=== PATIENT | male | born 1980 | race Caucasian/White ===

== ENCOUNTER 2017-09-16 01:28 | Emergency (ER) | payer OTHER, SELFPAY ==
[2017-09-16 01:29] VITALS: BP 146/100; PULSE 99; RESP 20; TEMP 36.6; O2SAT 99; BMI 27.8
[2017-09-16] MEDS: Lidocaine/Epi/Tetracaine 50 ML 1 APPLIC TOPICAL (04:49)
--- NOTE | 2017-09-16 05:32 | NURSING ---
PATIENT IS STILL WAITING TO GET SUTURED UP. DR. CALLEJAS HAS TOLD THE PATIENT THAT THIS WILL BE A LONGER PROCEDURE AND HE WOULD HAVE TO WAIT. PATIENT IS GETTING IMPATIENT AND REQUESTED TO BE TAKEN BY AN AMBULANCE TO ANOTHER HOSPITAL. HE WAS TOLD THAT HE WOULD HAVE TO GET HIS OWN TRANSPORTATION TO ANOTHER HOSPITAL. PATIENT HAS GONE OUT TO SMOKE TWO TIMES. HE HAS BEEN OFFERED EMOTIONAL SUPPORT AND FOOD/DRINK AND HE REFUSED ANGRILY. DR. CALLEJAS MADE AWARE OF HIS DISPLEASURE OF HAVING TO WAIT.
--- NOTE | 2017-09-16 06:40 | NURSING ---
DR. CALLEJAS IS CURRENTLY IN THE ROOM SUTURING THE PATIENT'S LIPS/MOUTH.
[2017-09-16 06:43] VITALS: BP 157/111; PULSE 91; O2SAT 100
--- NOTE | 2017-09-16 07:00 | ED.VISSUMM ---
- ER Visit Summary Date of Service: 09/16/17 Chief Complaint: Dog bite to face History of Present Illness: The patient is a 36 M plan with family dog when the dog accidentally bit him in the face. Causing multiple severe lacerations to both his upper and lower lip. There is also superficial wound to the right lateral side of his nose. This occurred approximately 1 hour prior to arrival around 1 AM. He denies other injuries. He denies any dental pain or any teeth being loose. Is unsure of his tetanus status. Physical Examination: Young male with multiple upper and lower lip lacerations from a dog bite. Vital signs are stable afebrile. He is anxious but cooperative. HEENT exam pupils round reactive light. Patient has 3 lacerations to his upper lip and 2 lacerations to his lower lip. These are through and through. There is significant swelling about the upper and lower lip and bruising. There does not appear to be any dental injury there is no malocclusion. There is no dental tenderness. He also has a superficial laceration to the right lateral nose alongside the naris but this does not need to be repaired. Neck nontender. Lungs are clear to auscultation. Heart is regular rhythm no murmur. Abdomen is soft and nontender. He is moving all 4 extremities. They are neurovascularly intact. Neurologically is awake and alert without focal motor deficits. Test Results: None Emergency Department Course and Treatment: Tetanus will be updated. Right upper lip the initial laceration is 3 cm and gaping. Involves the outer and inner surface. And also the vermilion border. Laceration #2 was 2 and asked centimeters it is just lateral to the first laceration and again is through and through. Laceration #3 is lateral to laceration #2. And is only about a centimeter will still need repair. Laceration #4 is on the right lateral side of the lower lip. Is approximately 2 and a centimeters in length. Again is through and through. #5 laceration is in the midportion of the left little lower lip. It is also to have centimeters and is through and through. All lacerations were anesthetized either locally or through a local block. All were explored and cleaned using Shur-Clens. All were copiously irrigated. All were closed using simple interrupted 5-0 Vicryl suture. Patient tolerated procedure well. The #1 laceration had 5 sutures. #2 laceration at 4 sutures. #3 laceration at 1 suture. #4 and 5 lacerations had 4 sutures. Proper hemostasis wound closure was obtained. Patient was pleased with the results. He was instructed on wound care. Ice and Motrin for pain. Treatment Plan: Ice to the facial wounds. Keep area clean. Call and follow-up with Dr. molly Paul for follow-up evaluation and laceration revision as necessary for the best cosmetic appearance. Disposition: Discharge Impression: Dog bite to the face with multiple lip lacerations Lip laceration #1 3 cm Lip laceration #2 2 and half centimeters Lip laceration #3 1 cm Laceration #4 2.5 cm Laceration #5 2.5 cm This note was generated with [employer] dictation software. It may contain incorrect words, spelling, and punctuation that were not noted in review of the chart prior to signing ED Disposition - Plan for ED Patient: Chief Complaint: Bite Referrals: Naima Solorio [Primary Care Provider] -
--- NOTE | 2017-09-16 07:10 | ED.DEP ---
ED Disposition - Plan for ED Patient: Disposition: Home or Assisted Living Chief Complaint: Bite Instructions: ED Bite Dog Prescriptions: Amoxicillin/Potassium Clav [Augmentin 875-125 Tablet] 1 ea PO BID #10 tab Referrals: Rod Mason MD [STAFF PHYSICIAN] - As soon as possible Additional Instructions: Ice your lips to decrease the swelling as much as possible. Motrin for pain and swelling. Keep all the lacerations and wounds as clean as possible by rinsing her mouth out thoroughly multiple times a day. Next Augmentin is an antibiotic he will take twice a day for the first 5 days to try to help prevent any type of infection. Her tetanus is been updated and are good for 10 years now. Call follow-up with Dr. Rod Mason the [facility] plastic surgeon for repeat evaluation and possible wound revision as needed.
[2017-09-16] MEDS: HYDROcodone Bitartrate/Apap 5/325 Tablet PO (07:13)
--- NOTE | 2017-09-16 07:17 | DCINST.ED_ITS ---
ED Disposition - Plan for ED Patient: Disposition: Home or Assisted Living Chief Complaint: Bite Instructions: ED Bite Dog Prescriptions: Amoxicillin/Potassium Clav [Augmentin 875-125 Tablet] 1 ea PO BID #10 tab Referrals: Rod Mason MD [STAFF PHYSICIAN] - As soon as possible Additional Instructions: Ice your lips to decrease the swelling as much as possible. Motrin for pain and swelling. Keep all the lacerations and wounds as clean as possible by rinsing her mouth out thoroughly multiple times a day. Next Augmentin is an antibiotic he will take twice a day for the first 5 days to try to help prevent any type of infection. Her tetanus is been updated and are good for 10 years now. Call follow-up with Dr. Rod Mason the [facility] plastic surgeon for repeat evaluation and possible wound revision as needed.
[2017-09-16 07:22] VITALS: RESP 18
== END 2017-09-16 07:24 | disposition home or self-care (01) ==
PROVIDERS: Emergency Provider Emergency Medicine; Family Provider Nurse Practitioner; PCP Nurse Practitioner
DX: S01.511A Laceration without foreign body of lip, initial encounter (principal); S01.21XA Laceration without foreign body of nose, initial encounter; W54.0XXA Bitten by dog, initial encounter; Y93.9 Activity, unspecified; Y92.9 Unspecified place or not applicable; K21.9 Gastro-esophageal reflux disease without esophagitis; Z72.0 Tobacco use
CPT/HCPCS: 12015; 99283

== ENCOUNTER → 2018-03-15 14:07 | Outpatient (CLI) | payer OTHER, SELFPAY ==
--- NOTE | 2018-03-15 14:09 | RAD_ITS ---
STUDY: X-RAY - LUMBAR SPINE REASON FOR EXAM: Male, 37 years old. Left lower leg numbness and foot drop for 2 weeks TECHNIQUE: 5 view(s) of the lumbar spine were obtained. COMPARISON: None FINDINGS: Normal lumbar lordosis. There is no substantial scoliosis. There is a normal alignment of the vertebrae. Normal vertebral bodies and endplates. Normal disc space heights. There is no demonstrated fracture. Transitional anatomy at L5 with rudimentary L5-S1 disc noted. There is no demonstrated spondylolysis of the pars interarticulares. Surgical coils of the right lower abdominal wall compatible with prior hernia repair. RAD/L/S Spine Min 4 Views IMPRESSION: 1. Normal x-ray examination of the lumbar spine. Electronically Signed: Rahul Abad MD at 22:30 EST , Service support ,
--- OUTSIDE RECORDS SUMMARY | 2018-06-19 05:30 | XMS RPT_ITS ---
:1980 Author Organization OHIP Care Team Providers Name Role Phone CHICO TATE Attending Unavailable CHICO TATE Referring Unavailable [facility], Naima Primary Care Unavailable Froilan Alarcon Attending Unavailable [facility] Primary Care Unavailable Rod Mason Attending Unavailable [facility], Naima Referring Unavailable [facility], [facility] Primary Care Unavailable PROBLEMS PROBLEMS DATE TYPE CONDITION / CODE ATTENDING STATUS SOURCE 03/15/2018 Unknown M54.17 - CHICO TATE Active [place] Radiculopathy, [facility] region / Repository M54.17(ICD-10) PROCEDURES PROCEDURES No Procedure Records FoundRESULTS RESULTS L/S SPINE MIN 4 Observed: 03/15/2018 Status: F Source: [place] VIEWS 2:09 PM [facility] REPOSITORY [facility] Imaging Services [address] [place] [address] L/S Spine Min 4 Views MR#: [id number] Acct: [id number] Name: SARI SHAVER Rep #: [id number] : 1980 M 37 From: Rahul Abad MD PCP: Naima Solorio NP Status: REG CLI Study: L/S Spine Min 4 Views Date of Exam: 03/15/18 Exam# [id number] Ordering Dr: AILIN MACEDO STUDY: X-RAY - LUMBAR SPINE REASON FOR EXAM: Male, 37 years old. Left lower leg numbness and foot drop for 2 weeks TECHNIQUE: 5 view(s) of the lumbar spine were obtained. COMPARISON: None FINDINGS: Normal lumbar lordosis. There is no substantial scoliosis. There is a normal alignment of the vertebrae. Normal vertebral bodies and endplates. Normal disc space heights. There is no demonstrated fracture. Transitional anatomy at L5 with rudimentary L5-S1 disc noted. There is no demonstrated spondylolysis of the pars interarticulares. Surgical coils of the right lower abdominal wall compatible with prior hernia repair. RAD/L/S Spine Min 4 Views IMPRESSION: 1. Normal x-ray examination of the lumbar spine. Electronically Signed: Rahul Abad MD at 22:30 EST , Service support , CC: Naima Solorio NP; AILIN MACEDO Bill Cutter: Signed PLASTIC SURGERY Observed: 11/21/2017 Status: F Source: [place] VISIT REPORT 2:20 PM [facility] REPOSITORY [facility] [address] [place] [address] OFFICE VISIT Date of Service: 10/11/17 MR#: [id number] Acct: [id number] Name: SARI SHAVER Rep #: [id number] : 1980 Provider: Rod Mason MD Age/Sex: 37/M Location: [facility] Status: Signed Intake Vital Signs10/11/17 Height 6 ft 4 in 10/11/17 Weight: 210 lb 8 oz Intake Visit Reasons: evaluation lip s/p dog bite 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 Accompanied by: None Is patient in pain?: No Allergies bee venom protein (honey bee) Allergy (Verified 10/11/17 17:03) Swelling Medications Amoxicillin/Potassium Clav [Augmentin 875-125 Tablet] 1 ea PO BID #10 tab 09/16/17 [Rx] Esomeprazole Mag Trihydrate [Nexium] 20 mg PO DAILY 09/16/17 [History Confirmed 09/16/17] PFSH Medical History Alcohol abuse (Acute) Anxiety and depression (Acute) Bone fracture (Acute) Drug abuse (Acute) History of back problems (Acute) Family History Father Alcohol abuse Mother Hypertension Social History Smoking Status: Current every day smoker alcohol intake: current substance use type: former substance user additional social history: DOES USE ASPIRIN DOES USE IBUPROFEN HPI evaluation lip s/p dog bite: Details: HISTORY OF PRESENT ILLNESS 37 year old male presents for evaluation of multiple dog bite lacerations to his right upper and lower lip and left lower lip that he sustained on 09/16/17 when a family dog accidentally bit him on his lip. There was also a superficial abrasion to his right lateral nose. He went to [facility] ED, and the dog bite wounds were cleansed and repaired with sutures. He was discharged on Augmentin. He was instructed by the ED to follow up as soon as possible. Patient states he forgot to call until a few days ago for his appointment. REVIEW OF SYSTEMS General - Denies fear, fatigue, and weight loss. Eyes - Denies cataracts and glaucoma. ENT - Denies nasal congestion and sore throat. Endocrine - Denies excessive thirst and urination. Skin - Has multiple dog bite healing incisions to his right upper lip, right lower lip, and left lower lip. Has a superficial abrasion right lateral nose that has healed. Musculoskeletal - Denies joint pain, joint stiffness, weakness of muscles and joints, back pain, and arthritis. Neuro - Denies headaches. Cardiovascular - Denies chest pain, fatigue, and shortness of breath with exertion. Psych - Denies anxiety and depression. Respiratory - Denies chronic cough and shortness of breath. Gastrointestinal - Denies nausea, vomiting, diarrhea, and constipation. Hematologic - Denies abnormal bruising and bleeding. Genitourinary - Denies hematuria and urinary frequency. PHYSICAL EXAMINATION General - Alert and oriented. HEENT - PERRL. EOMI. Throat is clear. On the right upper lip are 2 parallel lacerations that measure 2.0 cm each. They cross the cornel border. On the right lower lip is a 2.5 mm c-shape flap incision that crosses the cornel border. On the left lower lip is a 2 cm laceration that crosses the cornel border. The lacerations are intact and healing satisfactory. Good lip contour noted. On the right lateral nose was a superficial abrasion that has healed. Neck - Supple and non-tender. No cervical adenopathy. Lungs- Clear to auscultation. Heart - Regular rate and rhythm. Abdomen - Soft and non distended. Extremities - FROM. No axillary adenopathy. Radial pulses are palpable. Neuro - CN II-XII grossly intact. Psych - Normal and mood and affect. ASSESSMENT 1. Multiple dog bite wounds right upper lip, right lower lip, and left lower lip. 2. Superficial dog bite abrasion right lateral nose, healed. 3. Smoker. PLAN The multiple dog bite wounds are healing satisfactory. Incisions are intact and healing satisfactory. Good lip contour is noted. Sutures were removed today without difficulty. The superficial abrasion right lateral nose is healed. Massage incisions on lip and right lateral nose daily with skin lotion to help soften up the scars and help with lymphatic drainage. Use sunscreen when outdoors to help minimize darkening of the healing scars. Followup on an as needed basis if there are issues with the healing scars. Can discuss possible scar revision at that time if necessary. Scar revision does not eliminate the scars. It improves them. Would wait 9-12 months after the injury before considering any surgical revision. Encouraged patient to stop smoking as it may have deleterious effects on wound healing. Assessment AND Plan Problems 1. Bitten by dog W54.0XXA 2. Dog bite of vermilion border of lower lip S01.551A; W54.0XXA 3. Other superficial bite of nose, initial encounter S00.37XA 4. Smoker F17.200 Coding Level of Care Code Off vis,new,level 3 Diagnoses Bitten by dog W54.0XXA Dog bite of vermilion border of lower lip S01.551A; W54.0XXA Other superficial bite of nose, initial encounter S00.37XA Smoker F17.200 11/17/17 1316 <Electronically signed by Rod Mason MD> Date Rod Mason MD 11/21/17 1420<Electronically signed by Rhonda Mujica NP-C> Cosigner Signature: Date (if applicable) Rhonda MujicaC CC: Naima Solorio NP EMERGENCY DEPARTMENT Observed: 09/16/2017 Status: F Source: [place] SUMMARY 7:45 AM [facility] REPOSITORY [facility] Medical Records Department [address] [place] [address] Emergency Department Summary 09/16/17 0700 MR#: [id number] Acct: [id number] Name: SARI SHAVER Rep #: [id number] : 1980 36 From: Froilan Alarcon MD PCP: Naima Solorio NP Status: DEP ER - ER Visit Summary Date of Service: 09/16/17 Chief Complaint: Dog bite to face History of Present Illness: The patient is a 36 M plan with family dog when the dog accidentally bit him in the face. Causing multiple severe lacerations to both his upper and lower lip. There is also superficial wound to the right lateral side of his nose. This occurred approximately 1 hour prior to arrival around 1 AM. He denies other injuries. He denies any dental pain or any teeth being loose. Is unsure of his tetanus status. Physical Examination: Young male with multiple upper and lower lip lacerations from a dog bite. Vital signs are stable afebrile. He is anxious but cooperative. HEENT exam pupils round reactive light. Patient has 3 lacerations to his upper lip and 2 lacerations to his lower lip. These are through and through. There is significant swelling about the upper and lower lip and bruising. There does not appear to be any dental injury there is no malocclusion. There is no dental tenderness. He also has a superficial laceration to the right lateral nose alongside the naris but this does not need to be repaired. Neck nontender. Lungs are clear to auscultation. Heart is regular rhythm no murmur. Abdomen is soft and nontender. He is moving all 4 extremities. They are neurovascularly intact. Neurologically is awake and alert without focal motor deficits. Test Results: None Emergency Department Course and Treatment: Tetanus will be updated. Right upper lip the initial laceration is 3 cm and gaping. Involves the outer and inner surface. And also the vermilion border. Laceration #2 was 2 and asked centimeters it is just lateral to the first laceration and again is through and through. Laceration #3 is lateral to laceration #2. And is only about a centimeter will still need repair. Laceration #4 is on the right lateral side of the lower lip. Is approximately 2 and a centimeters in length. Again is through and through. #5 laceration is in the midportion of the left little lower lip. It is also to have centimeters and is through and through. All lacerations were anesthetized either locally or through a local block. All were explored and cleaned using Shur-Clens. All were copiously irrigated. All were closed using simple interrupted 5-0 Vicryl suture. Patient tolerated procedure well. The #1 laceration had 5 sutures. #2 laceration at 4 sutures. #3 laceration at 1 suture. #4 and 5 lacerations had 4 sutures. Proper hemostasis wound closure was obtained. Patient was pleased with the results. He was instructed on wound care. Ice and Motrin for pain. Treatment Plan: Ice to the facial wounds. Keep area clean. Call and follow-up with Dr. molly Paul for follow-up evaluation and laceration revision as necessary for the best cosmetic appearance. Disposition: Discharge Impression: Dog bite to the face with multiple lip lacerations Lip laceration #1 3 cm Lip laceration #2 2 and half centimeters Lip laceration #3 1 cm Laceration #4 2.5 cm Laceration #5 2.5 cm This note was generated with [employer] dictation software. It may contain incorrect words, spelling, and punctuation that were not noted in review of the chart prior to signing ED Disposition - Plan for ED Patient: Chief Complaint: Bite Referrals: Naima Solorio [Primary Care Provider] - What to do if you have Problems For any increased pain, shortness of breath, bleeding, nausea or vomiting, chest pain, or any unexpected problems, contact your Primary Care Provider. Call [facility] ([phone]) or report to the closest Emergency Room. Call 911 if necessary. 09/16/1745 <Electronically signed by Froilan Alarcon MD> Date Froilan Alarcon MD Cosigner Signature (If Indicated): Date CC: Naima Solorio NP DISCHARGE INSTRUCTION Observed: 09/16/2017 Status: F Source: [place] 7:45 AM [facility] REPOSITORY [facility] Medical Records Department [address] [place] [address] Discharge Instruction 09/16/1710 MR#: [id number] Acct: [id number] Name: SARI SHAVER Rep #: [id number] : 1980 36 From: Froilan Alarcon MD PCP: Naima Solorio NP Status: DEP ER ED Disposition - Plan for ED Patient: Disposition: Home or Assisted Living Chief Complaint: Bite Instructions: ED Bite Dog Prescriptions: Amoxicillin/Potassium Clav [Augmentin 875-125 Tablet] 1 ea PO BID #10 tab Referrals: Rod Mason MD [STAFF PHYSICIAN] - As soon as possible Additional Instructions: Ice your lips to decrease the swelling as much as possible. Motrin for pain and swelling. Keep all the lacerations and wounds as clean as possible by rinsing her mouth out thoroughly multiple times a day. Next Augmentin is an antibiotic he will take twice a day for the first 5 days to try to help prevent any type of infection. Her tetanus is been updated and are good for 10 years now. Call follow-up with Dr. Rod Mason the [facility] plastic surgeon for repeat evaluation and possible wound revision as needed. What to do if you have Problems For any increased pain, shortness of breath, bleeding, nausea or vomiting, chest pain, or any unexpected problems, contact your Primary Care Provider. Call [facility] ([phone]) or report to the closest Emergency Room. Call 911 if necessary. 09/16/17 0745 <Electronically signed by Froilan Alarcon MD> Date Froilan Alarcon MD Cosigner Signature (If Indicated): Date CC: Naima Solorio NP ALLERGIES ALLERGIES DATE TYPE / CODE NAME / CODE REACTION SEVERITY SOURCE 10/11/2017 Drug bee venom Swelling Unknown [facility] Allergy/4160 protein ([facility] [address](SNOMED bee)/[id number] Repository CT) 5(RXNORM) ENCOUNTERS ENCOUNTERS ADMIT/DISCHARGE ACCOUNT ADMITTING ENCOUNTER LOCATION SOURCE NUMBER CLASS 03/15/2018 [id number] Ambulatory [place] Rosa Isela 0 [facility] ing:RAD.FUTUR Repository E 10/11/2017/ [id number] Ambulatory BMSBuilding:B [place] 8 4 MS.WPS [facility] Repository 09/16/2017/ [id number] Emergency Rosa Isela [place] 8 2 [facility] ing:ED Repository PAYERS PAYERS ENCOUNTER GUARANTOR PAYER SUBSCRIBER SOURCE 03/15/2018 SARI Kyrie Primary SARI Mittal [place] [id number] Insurance:MEDICAL MELLOTTDOB: [facility] [id number] Number: Repository [address]Mdm: [phone] [id number] [phone] () Date:[id number] [place] [address]LW: 03/15/2018 Secondary NOT GIVENUNK [place] Insurance:SELF PAY [facility] Number: Effective Repository Date:2018-03-14 10/11/2017 SARI Mittal Primary SARI Natarajan [id number] Insurance:[facility]: [facility] [id number] Number: Repository [id number]: 330 [id number] [phone] () Date:1861-14-61MX [address] [address]ZV: 10/11/2017 Secondary NOT GIVENUNK [place] Insurance:SELF PAY [facility] Number: Effective Repository Date:2017-10-11 09/16/2017 SARI Mittal Primary SARI Natarajan [id number] Insurance:MEDICAL [facility]ISION[facility]TB: [facility] [id number] Number: Repository [id number]: 330 [id number] [phone] () Date:0630-75-54SZ [address] [place] [address]ES: 09/16/2017 Secondary NOT GIVENUNK [place] Insurance:SELF PAY [facility] Number: Effective Repository Date:2017-09-16
== END ==
PROVIDERS: Family Provider Nurse Practitioner; PCP Nurse Practitioner
DX: M54.17 Radiculopathy, lumbosacral region (principal)
CPT/HCPCS: 72110

== ENCOUNTER 2018-06-03 13:58 | Emergency (ER) | payer OTHER, SELFPAY ==
[2018-06-03 14:00] VITALS: BP 139/101; PULSE 88; RESP 16; TEMP 36.4; O2SAT 100; BMI 24.9
--- NOTE | 2018-06-03 14:47 | ED.DCSUM_ITS ---
- ER Visit Summary Date of Service: 06/03/18 Chief Complaint: Numbness across his chest History of Present Illness: The patient is a 37 M. Patient does smoke 2-3 packs of cigarettes a day and drinks 12-18 beers a day. 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 Resolved in 1-2 hours. No chest pain. He went to see the nurse practitioner at [facility] internal medicine they did an EKG they were concerned he had elevated potassium and sent to ER to be evaluated. He states his symptoms are completely gone he feels fine. He is never had anything like this before. He denies any exertional chest pain or exertional shortness of breath. No leg pain or swelling. No history of DVT or PE risk factors. Physical Examination: Well-appearing young male. Vital signs are stable. He is afebrile. His pulse ox 100% on room air no hypoxia. No distress he is completely symptom-free. H EENT exam unremarkable. Neck nontender no lymphadenopathy. Lungs clear to auscultation bilaterally. Heart regular rhythm no murmur. Abdomen soft and nontender. Normal bowel sounds no peritoneal signs. Remedies moves all 4. Equal symmetrical radial pulses. 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 Dorsi plantar flexion intact. Calves nontender without edema or cords. Back nontender. Neurologically is awake alert with no focal motor or sensory deficits. Test Results: CBC shows no acute abnormality. Chemistries normal. Normal creatinine, gap and potassium. Emergency Department Course and Treatment: Clinically patient has a completely normal exam. His EKG done at their office was a sinus of 83 with peaked T waves in V3 through V6 but no signs of IN or ischemia. No old EKG available for comparison. Treatment Plan: Stop smoking and decrease alcohol consumption. Follow-up with your primary care provider as needed. Disposition: Discharge Impression: Numbness of uncertain etiology resolved This note was generated with [employer] dictation software. It may contain incorrect words, spelling, and punctuation that were not noted in review of the chart prior to signing ED Disposition - Plan for ED Patient: Referrals: Naima Solorio, HERIBERTO-C [Primary Care Provider] -
[2018-06-03 15:23] LABS: Absolute Lymphocyte Count 1.18 X10^3/ul (0.83-4.51); Absolute Neutrophil Count 6.3 X10^3/uL (2.0-7.7); Basophil# 0.03 X10^3/uL; Basophil% 0.4 % (0-1); Eosinophil# 0.11 X10^3/uL; Eosinophils% 1.3 % (0-5); Hematocrit 43.9 % (40-54); Hemoglobin 13.9 g/dl (13.0-16.5); Lymphocyte # 1.18 X10^3/ul (4.0); Lymphocyte % 14.1 % (19-41); Mean Corp Hgb Conc 31.7 g/gl (32-36); Mean Corpuscular Hgb 28.8 pg (27.0-32.0); Mean Corpuscular Volume 91.1 fL (80-94); Mean Platelet Vol. 11.4 fl (6.2-12.0); Monocyte# 0.76 X10^3/uL; Monocyte% 9.1 % (0-10); Neutrophil # 6.29 X10^3/uL (2.7-7.7); Platelet Count 190 K/mm3 (150-450); RBC Distribution Width SD 53.5 fl (35.1-43.9); Red Blood Count 4.82 M/mm3 (4.6-6.2); White Blood Count 8.4 K/mm3 (4.4-11.0)
[2018-06-03 15:25] LABS: POSITIVE COUNT NO; POSITIVE DIFFERENTIAL NO; POSITIVE MORPHOLOGY NO
[2018-06-03 15:35] LABS: Anion Gap 10 (5-15); BUN 11 mg/dL (7-18); BUN/Creat Ratio 13.1 RATIO (10-20); Calcium,Total 8.4 mg/dL (8.5-10.1); Chloride 106 mmol/L (98-107); Creatinine, Serum 0.84 mg/dL (0.70-1.30); EST Glomerular Filtration Rate 109 mL/min (>60); Est Glom Filt Rate - Afr Amer 132 mL/min (>60); Estimated Creatinine Clearance 149.26 ml/min; Glucose 87 mg/dL (74-106); Potassium 3.8 mmol/L (3.5-5.1); Sodium Level 141 mmol/L (136-145)
--- NOTE | 2018-06-03 15:53 | ED.DEP ---
ED Disposition - Plan for ED Patient: Disposition: Home or Assisted Living Referrals: Naima Solorio, MARIELENAC [Primary Care Provider] - As Needed Additional Instructions: Your labs are normal today. The EKG they did at your doctor's office looked away did because of your tall thin build. Try to stop smoking and decrease her alcohol consumption.
[2018-06-03 16:02] VITALS: BP 144/85; PULSE 75; RESP 15; O2SAT 97
[2018-06-03 17:38] LABS: CPK Total, Creatine Kinase 253 U/L (39-308)
== END 2018-06-03 16:03 | disposition home or self-care (01) ==
PROVIDERS: Internal Medicine; Emergency Provider Emergency Medicine; Family Provider Nurse Practitioner; PCP Nurse Practitioner
DX: R20.0 Anesthesia of skin (principal); K21.9 Gastro-esophageal reflux disease without esophagitis; F17.210 Nicotine dependence, cigarettes, uncomplicated; Z72.89 Other problems related to lifestyle
CPT/HCPCS: 80048; 82550; 84484; 85025; 99285; A4216

== ENCOUNTER → 2018-06-11 14:56 | Outpatient (CLI) | payer OTHER, SELFPAY ==
[2018-06-03 14:00] VITALS: BMI 24.9
--- NOTE | 2018-06-11 14:58 | ECHOD_ITS ---
Reason For Study: Abnormal EKG Procedure This was a 2D Doppler, Color Flow transthoracic echocardiogram. Exam performed in department. Left Ventricle Normal size and thickness. The estimated ejection fraction is 65 %. Normal diastology for age. No regional wall motion abnormalities noted. Right Ventricle Normal size and thickness. Normal systolic function. Atria Normal left atrium. Normal right atrium. Normal atrial septum. Mitral Valve The mitral valve is structurally normal. No prolapse or stenosis seen. Trivial mitral valve insufficiency. Tricuspid Valve Normal tricuspid valve. Trivial tricuspid valve insufficiency. Right ventricular systolic pressure estimated to be 29 mmHg. Aortic Valve Trisinus/trileaflet aortic valve. Normal aortic valve. Pulmonic Valve Normal pulmonic valve. Great Vessels Normal aortic root. Normal arch. Normal inferior vena cava. Inferior vena cava collapse with sniff. Pericardium/Pleural No pericardial effusion. MMode/2D Measurements & Calculations LVIDd: 4.6 cm IVSd: 1.3 cm Ao root diam: 4.0 cm LVIDs: 2.6 cm LVPWd: 1.2 cm LA dimension: 3.8 cm FS: 42.7 % LAV(MOD-bp): 66.7 ml LA A4 area: 20.1 cm2 RA A4 area: 20.3 cm2 LAV(MOD-bp) Indexed: 29.8 ml/m2 LAV(MOD-sp2): 71.4 ml LAV(MOD-sp4): 57.3 ml Time Measurements MV dec time: 0.19 sec Doppler Measurements & Calculations MV E max jayro: 91.6 cm/sec Lat Peak E' Jayro: 10.7 cm/sec Med Peak E' Jayro: 10.8 cm/sec MV A max jayro: 67.3 cm/sec E/E' lat: 8.5 E/E' med: 8.5 MV E/A: 1.4 MV V2 max: 88.0 cm/sec MV P1/2t max jayro: 88.6 cm/sec Ao V2 max: 140.2 cm/sec MV max P.1 mmHg MV P1/2t: 43.7 msec Ao max P.9 mmHg MV V2 mean: 54.0 cm/sec MV dec slope: 594.6 cm/sec2 Ao V2 mean: 96.3 cm/sec MV mean P.4 mmHg MVA(P1/2t): 5.0 cm2 Ao mean P.3 mmHg MV V2 VTI: 24.0 cm Ao V2 VTI: 27.4 cm LV V1 max: 135.3 cm/sec PA V2 max: 99.2 cm/sec TR max jayro: 244.8 cm/sec LV V1 max P.3 mmHg TR max P.0 mmHg LV V1 mean P.4 mmHg LV V1 mean: 83.3 cm/sec LV V1 VTI: 26.0 cm Interpretation Summary The estimated ejection fraction is 65 %. Normal diastology for age. Trivial mitral valve insufficiency. Right ventricular systolic pressure estimated to be 29 mmHg. Trivial tricuspid valve insufficiency. There is no comparison study available. Ordering Physician: RAH Cruz Referring Physician: RAH Cruz Performed By: Jhony Schneider, [facility]
== END ==
PROVIDERS: Family Provider Nurse Practitioner; PCP Nurse Practitioner; Referring Provider Nurse Practitioner Gerontology; Visit Provider Nurse Practitioner Gerontology
DX: R94.31 Abnormal electrocardiogram [ECG] [EKG] (principal)
CPT/HCPCS: 93306

== ENCOUNTER → 2019-04-04 15:16 | Outpatient (CLI) | payer OTHER, SELFPAY ==
[2018-12-01 12:35] VITALS: BMI 24.9
--- NOTE | 2019-04-04 15:19 | RAD_ITS ---
STUDY: X-RAY CHEST REASON FOR EXAM: Male, 38 years old. COUGH TECHNIQUE: PA and lateral views of the chest. COMPARISON: None. FINDINGS: The lungs are clear and expanded. There is no demonstrated pleural abnormality. Normal size heart. Normal mediastinum and leola. Normal visualized pulmonary arteries. Normal visualized aortic arch and descending thoracic aorta. Normal visualized thoracic spine. Normal visualized ribs, clavicles, and shoulders. There is no demonstrated abnormality of the visualized soft tissue structures of the upper abdomen. RAD/Chest PA and Lateral IMPRESSION: Normal x-ray examination of the chest. Electronically Signed: Srinivas Lindsay MD at 16:05 EST , Service support ,
[2019-04-04 17:44] LABS: Absolute Lymphocyte Count 1.67 X10^3/uL (0.83-4.51); Absolute Neutrophil Count 6.1 X10^3/uL (2.0-7.7); Basophil# 0.06 X10^3/uL; Basophil% 0.7 % (0-1); Eosinophil# 0.19 X10^3/uL; Eosinophils% 2.2 % (0-5); Hematocrit 49.1 % (40-54); Hemoglobin 16.4 g/dL (13.0-16.5); Lymphocyte # 1.67 X10^3/ul (4.0); Lymphocyte % 19.1 % (19-41); Mean Corp Hgb Conc 33.4 g/dL (32-36); Mean Corpuscular Hgb 32.3 pg (27.0-32.0); Mean Corpuscular Volume 96.7 fL (80-94); Mean Platelet Vol. 11.7 fl (6.2-12.0); Monocyte# 0.75 X10^3/uL; Monocyte% 8.6 % (0-10); NRBC Flagged by Analyzer 0 % (0-5); Neutrophil # 6.05 X10^3/uL (2.7-7.7); Neutrophil % 69.1 % (47-70); Platelet Count 184 K/mm3 (150-450); RBC Distribution Width CV 11.5 % (11.6-14.6); RBC Distribution Width SD 41.2 fl (35.1-43.9); Red Blood Count 5.08 M/mm3 (4.6-6.2); White Blood Count 8.8 K/mm3 (4.4-11.0)
[2019-04-04 18:08] LABS: Vitamin D,25 Hydroxy 19.2 ng/mL (29.95-100.01)
[2019-04-04 18:25] LABS: ALB/GLOB Ratio 1.1 RATIO (0.9-2.4); AST(SGOT) 29 U/L (15-37); Alanine Aminotransfer ALT/SGPT 38 U/L (16-61); Albumin, Serum 4.1 g/dL (3.2-5.0); Alkaline Phosphatase 70 U/L (45-117); Anion Gap 6 (5-15); BUN 9 mg/dL (7-18); BUN/Creat Ratio 10.1 RATIO (10-20); Calcium,Total 8.4 mg/dL (8.5-10.1); Chloride 104 mmol/L (98-107); Creatinine, Serum 0.89 mg/dL (0.70-1.30); EST Glomerular Filtration Rate 102 mL/min (>60); Est Glom Filt Rate - Afr Amer 123 mL/min (>60); Globulin 3.8 g/dL (2.2-4.2); Glucose 84 mg/dL (74-106); Potassium 3.7 mmol/L (3.5-5.1); Protein, Total 7.9 g/dL (6.4-8.2); Sodium Level 136 mmol/L (136-145); Thyroid Stim Hormone (TSH) 2.12 uIU/mL (0.358-3.74)
== END ==
PROVIDERS: Family Provider Nurse Practitioner; PCP Nurse Practitioner; Referring Provider Nurse Practitioner; Visit Provider Nurse Practitioner
DX: R06.02 Shortness of breath (principal); N52.9 Male erectile dysfunction, unspecified
CPT/HCPCS: 36415; 71046; 80053; 82306; 84443; 85025

== ENCOUNTER → 2019-04-10 12:23 | Outpatient (CLI) | payer OTHER, SELFPAY ==
[2018-12-01 12:35] VITALS: BMI 24.9
--- NOTE | 2019-04-10 12:26 | US_ITS ---
STUDY: SCROTUM ULTRASOUND REASON FOR EXAM: Male, 38 years old. LEFT TESTICULAR LUMP TECHNIQUE: Ultrasound evaluation of the scrotum was performed with color Doppler and static huffman-scale imaging. COMPARISON: None. FINDINGS: RIGHT TESTICLE INTRATESTICULAR: There is a normal size of the right testicle. The right testicle measures 4.6 x 2.5 x 3.2 cm. There is a homogenous echotexture. There is normal arterial and normal venous vascularity. There is no demonstrated right testicular mass or cyst. EXTRATESTICULAR: The epididymis is normal in size. There is normal vascularity of the epididymis. There is a 2.8 x 3.5 x 2.8 mm epididymal cyst. There is a small hydrocele. There is no demonstrated varicocele. LEFT TESTICLE INTRATESTICULAR: There is a normal size of the left testicle. The left testicle measures 4.7 x 3.1 x 2.6 cm. There is a homogenous echotexture. There is normal arterial and normal venous vascularity. There is no demonstrated left testicular mass or cyst. EXTRATESTICULAR: The epididymis is normal in sizeThere is normal vascularity of the epididymis. There is no demonstrated epididymal cystic structure. There is no demonstrated hydrocele. There is no demonstrated varicocele. Adjacent to the epididymal tail and within the left hemiscrotum there is a 3.3 x 7.3 x 3.4 mm calcification within appearance suggestive of a scrotal eneida. US/Testicular with Arterial Flow IMPRESSION: 3.3 x 7.3 x 3.4 mm left scrotal eneida. 2.8 x 3.5 x 2.8 mm right epididymal cyst. Small right hydrocele. Electronically Signed: Carrol Carvalho MD at 16:11 EST Tel , Service support ,
== END ==
PROVIDERS: Family Provider Nurse Practitioner; PCP Nurse Practitioner; Referring Provider Nurse Practitioner; Visit Provider Nurse Practitioner
DX: N50.89 Other specified disorders of the male genital organs (principal); N50.3 Cyst of epididymis; N43.3 Hydrocele, unspecified
CPT/HCPCS: 76870; 93976

== ENCOUNTER 2019-12-29 16:30 | Outpatient (RCR) | payer OTHER, SELFPAY ==
[2018-12-01 12:35] VITALS: BMI 24.9
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
--- NOTE | 2019-12-29 17:17 | HP.PTDCSUM ---
It has been my pleasure to treat SARI SHAVER referred by DAIN CARBONE, with the diagnosis of NECK PAIN AND RADICULOPATHY (DR. CARBONE - [facility]). for a total of 7 visit(s). Discharge Date: 12/29/19 Please see the following information for a summary of their discharge status. Subjective: PATIENT REPORTS THE TRACTION SEEMS TO HAVE ALLOWED SOME RELAXATION OF HIS NECK BUT HIS RIGHT UE SX'S ARE THE SAME - NO BETTER AND NO WORSE. I'VE BEEN DEALING WITH THIS FOR A YEAR NOW AND I AM OVER IT. PATIENT REPORTS HE WAS SUPPOSED TO HAVE AN PRAVIN'T WITH HIS DOCTOR TOMORROW BUT HIS OFFICE RE-SCHEDULED IT TO 12/29/19. RIGHT SHOULDER Pain Intensity (Out of 10): 4 RIGHT UE Pain Intensity (Out of 10): 4 % Improvement: 0 Objective/Function: PATIENT WAS SEEN TODAY FOR RE-ASSESSMENT OF PROGRESS TOWARD THE SET PT GOALS AND THE NEED FOR FURTHER PHYSICAL THERAPY VS READINESS FOR DISCHARGE. OVER-ALL, PATIENT IS THE ABOUT THE SAME OR WORSE SINCE INITIAL EVAL. THIS PT RECOMMENDS D/C DUE TO LACK OF IMPROVEMENT AND PHYSICIAN RE-ASSESSMENT. PATIENT IS AGREEABLE. 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 GISELLA UE STRENGTH GROSSLY 5/5 WITH MMT'ING EXCEPT RIGHT SCAP 4/5. Sensory deficit: DECREASED LIGHT TOUCH SENSATION OF THE RIGHT UE COMPARED TO THE LEFT. ROM deficit: GISELLA UE'S WFL AND NO C/O INCREASED PAIN WITH GISELLA UE AROM TESTING. Reflexes: UNABLE TO ELICIT GISELLA UE DTR'S. Dural Signs: POSITIVE GISELLA UE'S RIGHT > LEFT. Cervical Mvmt Loss: Flex: NIL. Pro: NIL. Ext: MOD. Ret: MOD. RSB: MOD. LSB: MIN. R Rot: MIN. L Rot: NIL. PATIENT WITH INCREASED C/O PAIN IN RIGHT NECK AND SHLD WITH RIGHT CERVICAL ROT AND SB TESTING. ALSO WITH INCREASED NECK PAIN WITH RETRACTION. Postural strength: POOR. Palpation: NO ACUTE CERVICAL OR SHLD TENDERNESS. Goal 1:: DECREASE C/O NECK AND UE SX'S Goal Progress: Not Progressing Goal 2:: IMRPOVE PERSONAL CARE, SLEEP, WORK, DRIVING AND RECREATIONAL FUNCTION Goal Progress: Not Progressing Goal 3:: INSTRUCT IN PROPHYLAXIS Goal Progress: Not Progressing Plan: D/C DUE TO LACK OF IMPROVEMENT. PATIENT AGREEABLE. If there are questions or concerns regarding this patient's physical therapy, please feel free to call me at [phone]. Thank you for the referral of this patient. Sincerely, Ondina Lazaro PT, Cert MDT
== END 2019-12-29 19:00 | disposition home or self-care (01) ==
LOC: PT 16:30
PROVIDERS: PCP Nurse Practitioner
DX: M54.12 Radiculopathy, cervical region (principal)
CPT/HCPCS: 97012; 97035; 97110; 97162; 97164; 97530

== ENCOUNTER 2020-10-01 16:19 | Emergency (ER) | payer OTHER, SELFPAY ==
[2018-12-01 12:35] VITALS: BMI 24.9
[2020-10-01 16:20] VITALS: BP 143/95; PULSE 91; RESP 18; TEMP 36.4; O2SAT 95; BMI 28.0
--- NOTE | 2020-10-01 16:47 | CT_ITS ---
STUDY: CT CERVICAL SPINE WITHOUT CONTRAST REASON FOR EXAM: Male, 39 years old. Injury/Pain RADIATION DOSAGE (If Supplied By Facility): CTDIvol = ( 23.30 ) mGy, DLP = ( 665.85 ) mGycm TECHNIQUE: High resolution transaxial imaging was performed without contrast material. Sagittal and coronal images were reconstructed. Individualized dose optimization techniques were used for this CT. COMPARISON: CT of the neck dated 08/03/2014 FINDINGS: Normal craniovertebral junction. There are degenerative changes of the anterior atlantoaxial articulation. Normal odontoid process. Normal cervical lordosis. Normal vertebral bodies and posterior osseous elements. C2-3: Normal endplates. Normal disc height and morphology. Normal central canal and intervertebral neuroforamina. C3-4: There is a posterior disc osteophyte. Normal central canal and intervertebral neuroforamina. C4-5: Normal endplates. Normal disc height and morphology. Normal central canal and intervertebral neuroforamina. C5-6: There is evidence of prior anterior fusion associated with a disc spacer. There is a posterior disc osteophyte associated with stenosis of the central canal and narrowing of the left intervertebral neuroforamina. C6-7: There is endplate spondylosis. Normal central canal and intervertebral neuroforamina. C7-T1: Normal endplates. Normal disc height and morphology. Normal central canal and intervertebral neuroforamina. Normal visualized soft tissue structures. CT/Spine Cervical without Contras IMPRESSION: Multilevel degenerative changes, as described above. Electronically Signed: Carrol Carvalho MD at 17:51 EDT Tel , Service support ,
--- NOTE | 2020-10-01 16:47 | CT_ITS ---
EXAMINATION : Head CT w/out contrast HISTORY : Injury/Pain COMPARISON : None. TECHNIQUE : Multiple contiguous axial images were obtained from the skull base to the vertex without intravenous contrast. A radiation dose optimization technique was used for this scan. FINDINGS : The ventricles and sulci are normal in size. There is no evidence for acute intracranial hemorrhage, mass effect, or midline shift. There is no extra-axial fluid collection. There is normal griffith-white differentiation, without CT evidence of acute ischemia or infarct. The skull base and calvarium are unremarkable. The orbits are unremarkable. The paranasal sinuses are clear. The mastoid air cells are well-aerated. The soft tissues are unremarkable. CT/Brain/Head without Contrast IMPRESSION: No acute intracranial abnormality. Electronically Signed: Trent Cai MD at 17:43 EDT Tel , Service support ,
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
[2020-10-01] MEDS: Ondansetron 4 MG/2 ML Vial IV (17:03)
[2020-10-01] MEDS: Morphine 4 MG/ML Syringe IV ×2 (17:03→17:37)
--- NOTE | 2020-10-01 17:24 | RAD_ITS ---
STUDY: X-RAY CHEST REASON FOR EXAM: Male, 39 years old. Chest injury TECHNIQUE: Frontal and lateral views of the chest. COMPARISON: 04/04/2019 FINDINGS: The lungs are clear and expanded. There is no demonstrated pleural abnormality. Normal size heart. Normal mediastinum and leola. Normal visualized pulmonary arteries. Normal visualized aortic arch and descending thoracic aorta. Normal visualized thoracic spine. There is a comminuted fracture of the mid right clavicle. There is caudal displacement of the distal right clavicle. There are postsurgical changes of the lower cervical spine. There is no demonstrated abnormality of the visualized soft tissue structures of the upper abdomen. RAD/Chest PA and Lateral IMPRESSION: Right clavicular fracture. Electronically Signed: Carrol Carvalho MD at 18:35 EDT Tel , Service support ,
--- NOTE | 2020-10-01 17:24 | RAD_ITS ---
STUDY: X-RAY - RIGHT CLAVICLE REASON FOR EXAM: Male, 39 years old. Injury/Pain TECHNIQUE: 2 view(s) of the clavicle. COMPARISON: None. FINDINGS: There is a comminuted mid right clavicular fracture associated with caudal displacement of the distal clavicle. There are degenerative changes of the acromioclavicular articulation. Normal visualized sternoclavicular articulation. Normal visualized pulmonary apex. RAD/Clavicle IMPRESSION: Comminuted right clavicular fracture. Electronically Signed: Carrol Carvalho MD at 18:36 EDT Tel , Service support ,
[2020-10-01 17:49] VITALS: RESP 14
[2020-10-01] MEDS: HYDROmorphone 0.5 MG/0.5 ML SYRINGE IV (18:01)
[2020-10-01 18:04] VITALS: BP 148/96; PULSE 86; RESP 14; O2SAT 96
[2020-10-01 19:21] VITALS: BP 145/80; PULSE 78; RESP 16; O2SAT 98
== END 2020-10-01 19:24 | disposition home or self-care (01) ==
PROVIDERS: Emergency Provider Emergency Medicine; PCP Nurse Practitioner
DX: S42.001A Fracture of unspecified part of right clavicle, initial encounter for closed fracture (principal); S09.90XA Unspecified injury of head, initial encounter; S20.219A Contusion of unspecified front wall of thorax, initial encounter; F17.210 Nicotine dependence, cigarettes, uncomplicated; V89.0XXA Person injured in unspecified motor-vehicle accident, nontraffic, initial encounter; Z98.1 Arthrodesis status
CPT/HCPCS: 70450; 71046; 72125; 73000; 96374; 96375; 96376; 99283; A4216; J2405

== ENCOUNTER 2022-06-18 12:09 | Emergency (ER) | payer OTHER, SELFPAY ==
[2022-06-18 12:10] VITALS: BP 128/86; PULSE 90; RESP 15; TEMP 36.3; O2SAT 100; BMI 25.3
[2022-06-18] MEDS: Lidocaine 1% (20 ml mdv) 20 ML Vial INFILT (12:50)
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
== END 2022-06-18 13:11 | disposition home or self-care (01) ==
PROVIDERS: Emergency Provider Emergency Medicine; Visit Provider Emergency Medicine
DX: S01.511A Laceration without foreign body of lip, initial encounter (principal); F17.210 Nicotine dependence, cigarettes, uncomplicated; W19.XXXA Unspecified fall, initial encounter
CPT/HCPCS: 12011; 99283

== ENCOUNTER → 2023-12-21 | Outpatient (CLI) | payer OTHER, SELFPAY ==
[2023-12-21 16:57] LABS: Absolute Lymphocyte Count 1.72 X10^3/uL (0.83-4.51); Absolute Neutrophil Count 3.8 X10^3/uL (2.0-7.7); Basophil# 0.07 X10^3/uL; Basophil% 1.1 % (0-1); Eosinophils% 3.1 % (0-5); Hematocrit 47.7 % (40-54); Hemoglobin 16.4 g/dL (13.0-16.5); Lymphocyte # 1.72 X10^3/ul (0.83-4.51); Mean Corp Hgb Conc 34.4 g/dL (32-36); Mean Corpuscular Volume 101.7 fL (80-94); Monocyte# 0.59 X10^3/uL; Monocyte% 9.2 % (0-10); NRBC Flagged by Analyzer 0 % (0-5); Neutrophil # 3.77 X10^3/uL (2.7-7.7); Neutrophil % 59.1 % (47-70); Platelet Count 193 K/mm3 (150-450); RBC Distribution Width CV 11.3 % (11.6-14.6); Red Blood Count 4.69 M/mm3 (4.6-6.2); White Blood Count 6.4 K/mm3 (4.4-11.0)
[2023-12-21 17:18] LABS: Vitamin B12 580 pg/mL (211-911); Vitamin D,25 Hydroxy 36.9 ng/mL
[2023-12-21 17:29] LABS: ALB/GLOB Ratio 1.2 RATIO (0.9-2.4); AST(SGOT) 20 U/L (15-37); Alanine Aminotransfer ALT/SGPT 23 U/L (16-61); Albumin, Serum 3.8 g/dL (3.2-5.0); Alkaline Phosphatase 75 U/L (45-117); Anion Gap 9 (5-15); BUN 9 mg/dL (7-18); Calcium,Total 8.9 mg/dL (8.5-10.1); Chloride 105 mmol/L (98-107); Cholesterol 172 mg/dL (200); Creatinine, Serum 0.82 mg/dL (0.70-1.30); EST Glomerular Filtration Rate 110 mL/min (>60); Est Glom Filt Rate - Afr Amer 133 mL/min (>60); Ferritin 39 ng/mL (26-388); Globulin 3.2 g/dL (2.2-4.2); Glucose 93 mg/dL (74-106); High Density Lipoprotein 61 mg/dL; Iron 150 ug/dL (65-175); PSA,Total - Annual Screen 0.93 ng/mL (0.00-4.00); Potassium 3.7 mmol/L (3.5-5.1); Sodium Level 136 mmol/L (136-145); T4 Free Direct 1.13 ng/dL (0.76-1.46); Thyroid Stim Hormone (TSH) 0.987 uIU/mL (0.358-3.740); Triglycerides 105 mg/dL; Very Low Density Lipoprotein 21 mg/dL (5-40)
== END | disposition home or self-care (01) ==
LOC: BFHLAB 15:46
PROVIDERS: PCP Nurse Practitioner Family; Visit Provider Nurse Practitioner Family
DX: Z00.01 Encounter for general adult medical examination with abnormal findings (principal); R53.83 Other fatigue
CPT/HCPCS: 36415; 80053; 80061; 82306; 82607; 82728; 83540; 84153; 84439; 84443; 85025; G0103